=== PATIENT | female | born 1980 | race Hispanic/Latino ===

== ENCOUNTER 2017-02-15 15:47 | Emergency (ER) | payer OTHER ==
[2017-02-15 16:14] VITALS: BP 114/67; PULSE 57; RESP 16; TEMP 98.2; O2SAT 100
[2017-02-15] MEDS: Rabies Immune Globulin 150 INTLU/ML VIAL IM ONE (17:25)
[2017-02-15] MEDS: RABIES VACCINE 2.5 U PDR IM ONE (17:28)
--- NOTE | 2017-02-15 17:49 | ED PDOC ---
HPI: Skin/Bite Injury Time Seen by Provider: 02/15/17 16:18 Chief Complaint (Nursing): Bite Chief Complaint (Provider): Bite History Per: Patient History/Exam Limitations: no limitations Onset/Duration Of Symptoms: Days (1) Current Symptoms Are (Timing): Still Present Additional History Per: Patient Additional Complaint(s): 36yo female, presents to the ED for evaluation of a dog bite she sustained yesterday. Patient reports she was bit by a dog yesterday at the [employer]; states the dog is well appearing and is not more aggressive than normal. She states she received a TDAP and amoxicillin yesterday but presents today because she is concerned for rabies. She denies noticing any drooling or odd behavior in the dog. She denies any fever, chills and offers no additional medical complaints. - Animal Bite Description Of The Attack: Unprovoked Attack Description Of The Animal: Other ([employer]) Animal Appears: Well Animal's Immunization Status: Unknown Past Medical History Reviewed: Historical Data, Nursing Documentation, Vital Signs Vital Signs: Last Vital Signs Temp 98.2 F 02/15/17 16:12 Pulse 57 L 02/15/17 16:12 Resp 16 02/15/17 16:12 BP 114/67 02/15/17 16:12 Pulse Ox 100 02/15/17 17:52 - Medical History PMH: No Chronic Diseases - Surgical History Surgical History: No Surg Hx - Family History Family History: States: No Known Family Hx - Social History Current smoker - smoking cessation education provided: No Alcohol: None Drugs: Denies - Allergies Allergies/Adverse Reactions: Allergies Allergy/AdvReac Type Severity Reaction Status Date / Time No Known Allergies Allergy Verified 02/15/17 16:12 Review of Systems Constitutional: Negative for: Fever, Chills Musculoskeletal: Positive for: Hand Pain (dog bite sustained yesterday) Physical Exam - Reviewed Nursing Documentation Reviewed: Yes Vital Signs Reviewed: Yes - Physical Exam Appears: Positive for: Non-toxic, No Acute Distress Head Exam: Positive for: ATRAUMATIC, NORMAL INSPECTION, NORMOCEPHALIC Skin: Positive for: Warm, Dry Neck: Positive for: Supple Cardiovascular/Chest: Positive for: Regular Rate, Rhythm Respiratory: Negative for: Respiratory Distress Extremity: Positive for: Normal ROM, Other (healing puncture wound to right 1st digit, mild tenderness, no swelling noted.). Negative for: Deformity, Swelling Neurologic/Psych: Positive for: Alert, Oriented - ECG O2 Sat by Pulse Oximetry: 100 Medical Decision Making Medical Decision Making: Time: 1620 Impression: Dog bite Plan: -- Patient counseled regarding pros and cons of receiving the rabies vaccinations and she reports she still wants the vaccination. Patient informed that she will need to make follow up visits for the later doses of tracee vaccinations. She expresses understanding and is in agreement with plan. Rabies immunoglobulin and rabies vaccine ordered. Scribe Attestation: Documented by Nela Vargas acting as a scribe for JOEY Riley Provider Attestation: All medical record entries made by the Scribe were at my direction and personally dictated by me. I have reviewed the chart and agree that the record accurately reflects my personal performance of the history, physical exam, medical decision making, and the department course for this patient. I have also personally directed, reviewed, and agree with the discharge instructions and disposition. Disposition - Clinical Impression Clinical Impression: Animal bite wound, Need for rabies vaccination - Patient ED Disposition Is Patient to be Admitted: No Counseled Patient/Family Regarding: Diagnosis, Need For Followup - Disposition Disposition: Routine/Home Disposition Time: 22:44 Condition: STABLE Additional Instructions: Rabies vaccination schedule: Day 0: 02/15/17 Day 3: 02/18/17 Day 7: 02/22/17 Day 14: 03/01/17 Instructions: Rabies Immune Globulin (By injection), Rabies (ED) Forms: [employer] (Palauan)
== END 2017-02-15 18:09 | disposition home or self-care (01) ==
LOC: H.ER 15:47 → EDSEX 15:47 → H.ER 18:09
DX: Z20.3 Contact with and (suspected) exposure to rabies (principal)

== ENCOUNTER 2017-02-18 19:27 | Emergency (ER) | payer OTHER ==
[2017-02-18 19:47] VITALS: BP 114/66; PULSE 56; RESP 16; TEMP 97.4; O2SAT 100
[2017-02-18] MEDS ORDERED: RABIES VACCINE 2.5 U PDR IM ONE (19:49)
--- NOTE | 2017-02-18 20:04 | ED PDOC ---
HPI: General Adult Time Seen by Provider: 02/18/17 19:48 Chief Complaint (Nursing): Rabies Vaccine Series Chief Complaint (Provider): Rabies Vaccine Series History Per: Patient History/Exam Limitations: no limitations Additional Complaint(s): Fabiana Roa is a 36 year old female that presents to the ED for the second shot in her rabies vaccine series. Patient received her first shot in the series three days ago. She offers no complaints. No pain of wound. Past Medical History Reviewed: Historical Data, Nursing Documentation, Vital Signs Vital Signs: Last Vital Signs Temp 97.4 F L 02/18/17 19:45 Pulse 56 L 02/18/17 19:45 Resp 16 02/18/17 19:45 BP 114/66 02/18/17 19:45 Pulse Ox 100 02/18/17 20:04 - Family History Family History: States: Unknown Family Hx - Immunization History Hx Tetanus Toxoid Vaccination: Yes - Allergies Allergies/Adverse Reactions: Allergies Allergy/AdvReac Type Severity Reaction Status Date / Time No Known Allergies Allergy Verified 02/15/17 16:12 Review of Systems ROS Statement: Except As Marked, All Systems Reviewed And Found Negative Physical Exam - Reviewed Nursing Documentation Reviewed: Yes Vital Signs Reviewed: Yes - Physical Exam Appears: Positive for: Non-toxic, No Acute Distress Head Exam: Positive for: ATRAUMATIC, NORMOCEPHALIC Skin: Positive for: Warm. Negative for: Normal Color (Skin on thumb where patient was bite does not appear to be broken. ) Eye Exam: Positive for: Normal appearance Neurologic/Psych: Positive for: Alert, Oriented. Negative for: Motor/Sensory Deficits - ECG O2 Sat by Pulse Oximetry: 100 (RA) Pulse Ox Interpretation: Normal Medical Decision Making Medical Decision Making: Impression: Vaccination Plan: * Rabies Vaccine Scribe Attestation: Documented by Annamarie Cervantes, acting as a scribe for Kelsey J Kotuski, PA-C. Provider Scribe Attestation: All medical record entries made by the Scribe were at my direction and personally dictated by me. I have reviewed the chart and agree that the record accurately reflects my personal performance of the history, physical exam, medical decision making, and the department course for this patient. I have also personally directed, reviewed, and agree with the discharge instructions and disposition. Disposition - Clinical Impression Clinical Impression: Need for rabies vaccination - Patient ED Disposition Is Patient to be Admitted: No - Disposition Disposition: Routine/Home Disposition Time: 20:20 Condition: GOOD Instructions: Rabies Vaccine (ED) Forms: [employer] ([place]) [employer] (Faroese)
== END 2017-02-18 20:39 | disposition home or self-care (01) ==
LOC: H.ER 19:27
DX: Z20.3 Contact with and (suspected) exposure to rabies (principal)

== ENCOUNTER 2017-02-22 07:45 | Emergency (ER) | payer OTHER ==
[2017-02-22 07:52] VITALS: BP 105/61; PULSE 66; TEMP 97; O2SAT 97
[2017-02-22 07:53] VITALS: BMI 23.5
[2017-02-22] MEDS ORDERED: RABIES VACCINE 2.5 U PDR IM ONE (08:03)
--- NOTE | 2017-02-22 08:29 | ED PDOC ---
HPI: General Adult Time Seen by Provider: 02/22/17 07:51 Chief Complaint (Nursing): Rabies Vaccine Series Chief Complaint (Provider): Rabies Vaccine Series History Per: Patient History/Exam Limitations: no limitations Onset/Duration Of Symptoms: Mins (prior to arrival ) Current Symptoms Are (Timing): Still Present Additional Complaint(s): Fabiana Roa is a 36 year old female presenting to the ED for third dose of rabies vaccination. PMD: Jelani Alejandro MD Past Medical History Reviewed: Historical Data, Nursing Documentation, Vital Signs Vital Signs: Last Vital Signs Temp 97 F L 02/22/17 07:51 Pulse 66 02/22/17 07:51 Resp BP 105/61 02/22/17 07:51 Pulse Ox 97 02/22/17 07:51 - Medical History PMH: No Chronic Diseases - Family History Family History: States: Unknown Family Hx - Social History Current smoker - smoking cessation education provided: No Ex-Smoker (has not smoked in the last 12 months): No Alcohol: None Drugs: Denies - Immunization History Hx Tetanus Toxoid Vaccination: Yes - Home Medications Home Medications: Ambulatory Orders Medication Instructions Recorded No Known Home Med 02/22/17 - Allergies Allergies/Adverse Reactions: Allergies Allergy/AdvReac Type Severity Reaction Status Date / Time No Known Allergies Allergy Verified 02/15/17 16:12 Review of Systems ROS Statement: Except As Marked, All Systems Reviewed And Found Negative Constitutional: Positive for: Other (rabies vaccination) Physical Exam - Reviewed Nursing Documentation Reviewed: Yes Vital Signs Reviewed: Yes - Physical Exam Appears: Positive for: Non-toxic, No Acute Distress Head Exam: Positive for: ATRAUMATIC, NORMOCEPHALIC Skin: Positive for: Normal Color, Warm, Dry Eye Exam: Positive for: Normal appearance Neck: Positive for: Normal Respiratory: Negative for: Respiratory Distress Extremity: Positive for: Other (puncture site to right thumb with no erythema, edema, drainage, or induration ) Neurologic/Psych: Positive for: Alert, Oriented - ECG O2 Sat by Pulse Oximetry: 97 (RA) Pulse Ox Interpretation: Normal Medical Decision Making Medical Decision Making: Time: 07:51 Impression: Rabies Vaccine Series Plan: * Rabavert Vaccine Inj 2.5 u IM Scribe Attestation: Documented by Lesia Mccarthy, acting as a scribe for Yojana Hooper MD. Provider Scribe Attestation: All medical record entries made by the Scribe were at my direction and personally dictated by me. I have reviewed the chart and agree that the record accurately reflects my personal performance of the history, physical exam, medical decision making, and the department course for this patient. I have also personally directed, reviewed, and agree with the discharge instructions and disposition. Disposition - Clinical Impression Clinical Impression: Need for rabies vaccination - Disposition Condition: STABLE Additional Instructions: RETURN TO ED FOR VACCINATION. Instructions: Rabies Vaccine (ED) Forms: [employer] (Frisian)
== END 2017-02-22 08:32 | disposition home or self-care (01) ==
LOC: H.ER 07:45
DX: Z20.3 Contact with and (suspected) exposure to rabies (principal)

== ENCOUNTER 2017-03-01 07:15 | Emergency (ER) | payer OTHER ==
[2017-03-01 07:15] VITALS: BMI 23.5
[2017-03-01 07:24] VITALS: BP 108/46; PULSE 61; TEMP 99; O2SAT 100
[2017-03-01 07:40] VITALS: RESP 18
[2017-03-01] MEDS ORDERED: RABIES VACCINE 2.5 U PDR IM ONE (07:47)
--- NOTE | 2017-03-01 08:00 | ED PDOC ---
HPI: General Adult Time Seen by Provider: 03/01/17 07:17 Chief Complaint (Nursing): Rabies Vaccine Series Chief Complaint (Provider): Rabies Vaccine Series History Per: Patient History/Exam Limitations: no limitations Onset/Duration Of Symptoms: Days Current Symptoms Are (Timing): Still Present Additional Complaint(s): Fabiana is a 37 y/o female who returns to the ED for her last rabies vaccine. Patient was [place] dog [place] the park [place]17 on her right thumb. She denies any signs of infections to the wound or fever/chills. PMD: Dr. Jelani Castillo Past Medical History Reviewed: Historical Data, Nursing Documentation, Vital Signs Vital Signs: Last Vital Signs Temp 99 F 03/01/17 07:33 Pulse 61 03/01/17 07:33 Resp 18 03/01/17 07:33 BP 108/46 L 03/01/17 07:33 Pulse Ox 100 03/01/17 08:04 - Family History Family History: States: Unknown Family Hx - Immunization History Hx Tetanus Toxoid Vaccination: Yes - Home Medications Home Medications: Ambulatory Orders Medication Instructions Recorded No Known Home Med 02/22/17 - Allergies Allergies/Adverse Reactions: Allergies Allergy/AdvReac Type Severity Reaction Status Date / Time No Known Allergies Allergy Verified 03/01/17 07:33 Review of Systems ROS Statement: Except As Marked, All Systems Reviewed And Found Negative Constitutional: Negative for: Fever, Chills Skin: Positive for: Other (Right thumb wound). Negative for: Rash Physical Exam - Reviewed Nursing Documentation Reviewed: Yes Vital Signs Reviewed: Yes - Physical Exam Appears: Positive for: Well, Non-toxic, No Acute Distress Skin: Positive for: Normal Color. Negative for: Rash Extremity: Positive for: Normal ROM, Other (site of injury is clean, dry, and intact at right thumb cuticle) - ECG O2 Sat by Pulse Oximetry: 100 (RA) Pulse Ox Interpretation: Normal Medical Decision Making Medical Decision Making: Time: 7:47 Initial Impression: Encounter for rabies vaccine series Initial Plan: --Patient given rabies vaccine Upon provider evaluation patient is medically stable, and requires no further treatment in the ED at this time. Counseling was provided and all questions were answered regarding diagnosis and need for follow up with PMD. There is agreement to discharge plan. Return if symptoms persist or worsen. Scribe Attestation: Documented by Dottie Merida, acting as a scribe for Venecia Palacios MD Provider Scribe Attestation: All medical record entries made by the Scribe were at my direction and personally dictated by me. I have reviewed the chart and agree that the record accurately reflects my personal performance of the history, physical exam, medical decision making, and the department course for this patient. I have also personally directed, reviewed, and agree with the discharge instructions and disposition. Disposition - Clinical Impression Clinical Impression: Need for rabies vaccination - Patient ED Disposition Is Patient to be Admitted: No Counseled Patient/Family Regarding: Diagnosis, Need For Followup - Disposition Disposition: Routine/Home Disposition Time: 07:47 Condition: IMPROVED Additional Instructions: follow up with your primary doctor return to the ED with any worsening or concerning symptoms Instructions: Rabies Vaccine (By injection) Forms: [employer] (Latvian)
== END 2017-03-01 08:11 | disposition home or self-care (01) ==
LOC: H.ER 07:15
DX: Z23 Encounter for immunization (principal)